=== PATIENT | male | born 2000 | race African-American/Black ===

== ENCOUNTER 2019-03-11 16:25 | Emergency (ER) | payer OTHER ==
[~2019-03-11] VITALS: Ht 172.7 cm; Wt 72.6 kg
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
[2019-03-11] MEDS ORDERED: IV NORMAL SALINE 1000ML BAG 1,000 ML IV SCH (17:00)
[2019-03-11 17:07] LABS: BASO % 1 % (0-3); EOS # 0.1 x10^3/uL (0.0-0.7); EOS % 1 % (0-3); HEMATOCRIT 42.9 % (39.0-53.0); HEMOGLOBIN 14.5 g/dL (13.0-17.5); LYMPH # 2.2 x10^3/uL (1.0-4.8); LYMPH % 26 % (24-48); MEAN CORPUSCULAR HEMOGLOBIN 29 pg (25-35); MEAN CORPUSCULAR HGB CONC 34 g/dL (31-37); MEAN CORPUSCULAR VOLUME 86 fL (79-100); MONO # 0.8 x10^3/uL (0.0-1.1); MONO % 9 % (0-9); NEUT # 5.6 x10^3/uL (1.8-7.7); NEUT % 65 % (31-73); PLATELET COUNT 234 x10^3/uL (140-400); RED BLOOD COUNT 4.99 x10^6/uL (4.30-5.70); RED CELL DISTRIBUTION WIDTH 13.3 % (11.5-14.5); WHITE BLOOD COUNT 8.6 x10^3/uL (4.0-11.0)
[2019-03-11 17:14] LABS: CALCIUM 8.9 mg/dL (8.5-10.1); CREATININE 1.1 mg/dL (0.7-1.3); GFR 85.3; POTASSIUM 3.6 mmol/L (3.5-5.1)
[2019-03-11] MEDS ORDERED: DIPHTH,PERTUSS(ACELL),TET TOX 0.5 ML DISP.SYRIN. VAX IM ONE (17:15)
[2019-03-11 17:20] LABS: ALBUMIN 4.1 g/dL (3.4-5.0); ALBUMIN/GLOBULIN RATIO 1.2 (1.0-1.7); TOTAL BILIRUBIN 0.4 mg/dL (0.2-1.0); TOTAL PROTEIN 7.6 g/dL (6.4-8.2)
[2019-03-11] MEDS ORDERED: fentaNYL PF VIAL 100 MCG/2 ML VIAL ONE (17:20)
[2019-03-11 17:23] LABS: BILIRUBIN,URINE NEGATIVE (NEG); CLARITY,URINE CLOUDY; COLOR,URINE YELLOW; NITRITE,URINE NEGATIVE (NEG); PH,URINE 5.5; PROTEIN,URINE NEGATIVE (NEG-TRACE); UROBILINOGEN,URINE 0.2 mg/dL (0.2 mg/dL)
[2019-03-11 17:30] LABS: BARBITURATES NEG (NEG); BENZODIAZEPINES NEG (NEG); CANNABINOIDS NEG (NEG); COCAINE NEG (NEG); METHADONE NEG (NEG); OPIATES NEG (NEG); PHENCYCLIDINE NEG (NEG)
[2019-03-11] MEDS ORDERED: fentaNYL PF VIAL 100 MCG/2 ML VIAL IV ONE (17:30)
[2019-03-11 17:31] LABS: AMPHETAMINE/METHAMPHETAMINE NEG (NEG); BACTERIA,URINE 0 /HPF (0-FEW); RBC,URINE 0 /HPF (0-2); WBC,URINE 20-40 /HPF (0-4)
[2019-03-11] MEDS ORDERED: CONTRAST GIVEN. MC PRN (17:45)
[2019-03-11] MEDS ORDERED: IOHEXOL 300 MG/ML 100ML VIAL. IV ONE (18:00)
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
--- NOTE | 2019-03-11 18:16 | EKG ---
[facility] [address] [place] [address] Test Date: 2019-03-11 Test Time: 16:41:11 Pat Name: SAVANNAH MEJÍA Department: Room: Gender: M Trouble Locater: : 2000 Requested By: LANA VILLALOBOS Order Number: [id number] Reading MD: Measurements Intervals [place] Rate: 61 P: 38 NH: 136 QRS: 75 QRSD: 88 T: 58 QT: 376 QTc: 384 Interpretive Statements SINUS RHYTHM OTHERWISE NORMAL ECG RI6.01 No previous ECG available for comparison
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
[2019-03-11] MEDS ORDERED: cefTRIAXone IV Push 1 GM VIAL. IVP ONE (18:30)
[2019-03-11] MEDS ORDERED: LIDOCAINE 2% 20 ML VIAL. IJ ONE (19:45)
[2019-03-11] MEDS ORDERED: HYDR-3164 PO (20:07)
[2019-03-11] MEDS ORDERED: CEPH500C PO (20:07)
[2019-03-11 20:57] VITALS: BP 119/75
== END 2019-03-11 21:09 | disposition home or self-care (01) ==
LOC: EDSEX 16:25 → ER 16:25
DX: S61.412A Laceration without foreign body of left hand, initial encounter (principal); S30.1XXA Contusion of abdominal wall, initial encounter; R51 Headache; M54.2 Cervicalgia; V49.9XXA Car occupant (driver) (passenger) injured in unspecified traffic accident, initial encounter; Y92.488 Other paved roadways as the place of occurrence of the external cause; Y93.89 Activity, other specified; Y99.8 Other external cause status
CPT/HCPCS: 12002; 36415; 70450; 71260; 72125; 73130; 74177; 80053; 80307; 81001; 82962; 85025; 85610; 85730; 90471; 90715; 93005; 96374; 96375; 99285; G0480; J0696; J2001; J3010; J7030; Q9967